=== PATIENT | female | born 1960 | race Caucasian/White ===

== ENCOUNTER 2018-02-19 08:57 | Outpatient (CLI) | payer OTHER ==
[~2018-02-19 08:57] MED LIST: NABUMETONE500 MG PO; PERCOCET 5/3251 TAB PO; SYNTHROID125 MCG
== END 2018-02-19 17:00 | disposition home or self-care (01) ==
LOC: TOM 08:57
DX: K59.09 Other constipation (principal); K44.9 Diaphragmatic hernia without obstruction or gangrene; K64.0 First degree hemorrhoids; K62.89 Other specified diseases of anus and rectum

== ENCOUNTER 2018-03-16 09:10 | Outpatient (CLI) | payer OTHER | END 2018-03-16 15:02 | disposition home or self-care (01) | LOC: RAD 09:10 | DX: K59.09 Other constipation (principal); K44.9 Diaphragmatic hernia without obstruction or gangrene; K64.0 First degree hemorrhoids; K29.70 Gastritis, unspecified, without bleeding; K62.89 Other specified diseases of anus and rectum; Z86.010 Personal history of colon polyps; K76.0 Fatty (change of) liver, not elsewhere classified ==

== ENCOUNTER → 2019-06-24 | Outpatient (CLI) | payer OTHER | END | disposition home or self-care (01) | LOC: MRI 10:25 | DX: M65.871 Other synovitis and tenosynovitis, right ankle and foot (principal); M24.571 Contracture, right ankle | CPT/HCPCS: 73721 ==